=== PATIENT | female | born 1970 | race Two or more races ===

== ENCOUNTER 2019-01-17 08:26 | Day surgery (SDC) | payer MEDICAID ==
[2019-01-17 08:49] VITALS: BMI 25.8
[2019-01-17 08:56] VITALS: O2SAT 100
[2019-01-17] MEDS ORDERED: Lactated Ringer's 500 ML IV SCH (09:15)
--- NOTE | 2019-01-17 09:25 | CP.SDSHP ---
Same Day Surgery H & P - History Proposed Procedure: colonoscopy - Previous Medical/Surgical History Cardiac: Hypertension Previous Surgical History: Csection - Allergies Allergies: Allergies No Known Allergies Allergy (Verified 01/17/19 08:49) - Physical Exam Vital Signs: Vital Signs 01/17/19 01/17/19 08:56 09:05 Temperature 98.9 F Pulse Rate 73 73 Respiratory 16 Rate Blood Pressure 112/74 O2 Sat by Pulse 100 Oximetry - Date & Time Date: 01/17/19 Time: 09:24 Short Stay Discharge - Short Stay Discharge Admitting Diagnosis/Reason for Visit: RECTAL BLEEDING, CHANGING IN BOWEL HABITS Disposition: HOME/ ROUTINE
[2019-01-17] MEDS ORDERED: Propofol 10 mg/ml Inj (20 ML) ONE (10:16)
[2019-01-17] MEDS ORDERED: Lactated Ringer's 500 ML IV ONE (10:37)
[2019-01-17] MEDS ORDERED: Lidocaine 2% Jelly (5 ml) TOP ONE (10:45)
[2019-01-17 11:19] VITALS: TEMP 97.8
[2019-01-17 12:56] VITALS: BP 103/56; PULSE 66; RESP 16
== END 2019-01-17 12:10 | disposition home or self-care (01) ==
LOC: C.ENDO 08:26
PROVIDERS: ATTEND Colon & Rectal Surgery
DX: K62.5 Hemorrhage of anus and rectum (principal); R19.4 Change in bowel habit; K64.8 Other hemorrhoids; K62.4 Stenosis of anus and rectum
CPT/HCPCS: 45378; 84703; J2001; J2704; J7120